=== PATIENT | female | born 1960 | race Caucasian/White ===

== ENCOUNTER 2024-09-24 12:10 | Emergency (ER) | payer MEDICAID ==
[2024-09-24 13:23] LABS: BASOPHILS ABSOLUTE AUTO 0.1 K/mm3 (0.0-0.2); BASOPHILS PERCENT AUTO 0.9 % (0.0-1.0); EOSINOPHILS ABSOLUTE AUTO 0.1 K/mm3 (0.0-0.4); EOSINOPHILS PERCENT AUTO 0.7 % (0.0-6.0); HEMATOCRIT 59.1 % (37.0-47.0); HEMOGLOBIN 19.8 gm/dl (12.0-16.0); IMMATURE GRAN ABSOLUTE AUTO 0.03 K/mm3 (0.00-0.05); IMMATURE GRAN PERCENT AUTO 0.3 % (0.0-0.4); LYMPHOCYTES ABSOLUTE AUTO 2.2 K/mm3 (1.0-4.8); LYMPHOCYTES PERCENT AUTO 21.1 % (24.0-44.0); MEAN CORPUSCULAR HEMOGLOBIN 31.8 pg (28.0-32.0); MEAN CORPUSCULAR HGB CONC 33.5 g/dl (32.0-36.0); MEAN PLATELET VOLUME 9.8 fl (9.4-12.3); MONOCYTES ABSOLUTE AUTO 0.8 K/mm3 (0.0-0.8); MONOCYTES PERCENT AUTO 7.6 % (0.0-8.0); NEUTROPHILS ABSOLUTE AUTO 7.3 K/mm3 (1.8-7.7); NEUTROPHILS PERCENT AUTO 69.4 % (41.0-71.0); PLATELET COUNT,PLT 241 K/mm3 (150-400); RED BLOOD CELL COUNT 6.22 M/mm3 (4.10-5.30); WHITE BLOOD CELL COUNT,WBC 10.56 K/mm3 (3.9-11.3)
[2024-09-24 13:44] LABS: A/G RATIO 0.9 (1-2); ALBUMIN 3.3 g/dl (3.4-5.0); ANION GAP 10.7 (5-15); BILIRUBIN TOTAL 0.5 mg/dL (0.2-1.0); BUN/CREATININE RATIO 12.5 (14-18); CALCIUM 9.5 mg/dL (8.5-10.1); CREATININE 0.8 mg/dL (0.55-1.02); EST CRCL DRUG DOSING (CG) 57.99 mL/min; POTASSIUM,K 3.7 mEq/L (3.5-5.1); PROTEIN TOTAL,TP 6.9 g/dl (6.4-8.2)
[2024-09-24 13:45] LABS: APPEARANCE,URINE CLEAR (Clear); BILIRUBIN,URINE NEGATIVE (Negative); COLOR,URINE YELLOW (Yellow); GLUCOSE,URINE NEGATIVE (Negative); KETONES,URINE NEGATIVE (Negative); LEUKOCYTE ESTERASE,URINE NEGATIVE (Negative); NITRITE,URINE NEGATIVE (Negative); OCCULT BLOOD,URINE NEGATIVE (Negative); PROTEIN,URINE 2+ (Negative); UROBILINOGEN,URINE 0.2 (0.2-1.0)
[2024-09-25 00:41] LABS: BACTERIA,URINE OCCASIONAL /hpf (FEW); EPITHELIAL CELLS,URINE 0-5 /hpf (0-5); RBC,URINE 0-5 /hpf (0-5); WBC,URINE 0-5 /hpf (0-5)
[2024-09-25 00:42] LABS: MUCUS,URINE NOT SEEN /hpf (FEW)
== END 2024-09-24 15:00 | disposition home or self-care (01) ==
LOC: JD.ED 12:10
DX: N39.3 Stress incontinence (female) (male) (principal)
CPT/HCPCS: 36415; 80053; 81001; 85025; 99283

== ENCOUNTER 2024-11-04 12:15 | Emergency (ER) | payer MEDICAID | END 2024-11-04 13:08 | disposition home or self-care (01) | LOC: JD.ED 12:15 | DX: B37.2 Candidiasis of skin and nail (principal); I83.218 Varicose veins of right lower extremity with both ulcer of other part of lower extremity and inflammation; L97.819 Non-pressure chronic ulcer of other part of right lower leg with unspecified severity; E78.00 Pure hypercholesterolemia, unspecified; I10 Essential (primary) hypertension; Z79.899 Other long term (current) drug therapy | CPT/HCPCS: 99283 ==

== ENCOUNTER 2025-02-08 07:33 | Emergency (ER) | payer MEDICAID ==
[2025-02-08 07:49] LABS: BASOPHILS ABSOLUTE AUTO 0.1 K/mm3 (0.0-0.2); BASOPHILS PERCENT AUTO 0.8 % (0.0-1.0); EOSINOPHILS ABSOLUTE AUTO 0.0 K/mm3 (0.0-0.4); EOSINOPHILS PERCENT AUTO 0.3 % (0.0-6.0); IMMATURE GRAN ABSOLUTE AUTO 0.05 K/mm3 (0.00-0.05); IMMATURE GRAN PERCENT AUTO 0.5 % (0.0-0.4); LYMPHOCYTES ABSOLUTE AUTO 1.4 K/mm3 (1.0-4.8); LYMPHOCYTES PERCENT AUTO 13.3 % (24.0-44.0); MEAN PLATELET VOLUME 9.6 fl (9.4-12.3); MONOCYTES ABSOLUTE AUTO 1.0 K/mm3 (0.0-0.8); MONOCYTES PERCENT AUTO 10.2 % (0.0-8.0); NEUTROPHILS ABSOLUTE AUTO 7.6 K/mm3 (1.8-7.7); NEUTROPHILS PERCENT AUTO 74.9 % (41.0-71.0); NRBC ABSOLUTE 0.03 (0.00-0.02); NRBC PERCENT 0.3 % (0.0-0.2); PLATELET COUNT,PLT 213 K/mm3 (150-400); RED BLOOD CELL COUNT 6.93 M/mm3 (4.10-5.30); WHITE BLOOD CELL COUNT,WBC 10.15 K/mm3 (3.9-11.3)
[2025-02-08 07:55] LABS: BASE EXCESS ARTERIAL 14.7 (-2-2.0); BICARBONATE,ARTERIAL 47.9 meq/L (22.0-26.0); O2 SATURATION ARTERIAL 82.8 % (96.0-97.0); PCO2 ARTERIAL 93.0 mmHg (35.0-45.0); PO2 ARTERIAL 52.0 mmHg (80.0-100.0)
[2025-02-08] MEDS: methylPREDNISolone Sodium Succinate 125 MG/2 ML SDV IVPUSH ONE (08:01)
[2025-02-08] MEDS: Sodium Chloride 0.9% 10 ML Syringe FLUSH PRN (08:01)
[2025-02-08 08:16] LABS: A/G RATIO 0.8 (1-2); ALANINE AMINOTRANSFERASE,ALT 17.0 U/L (14-59); ASPARTATE AMNIOTRANSFERASE,AST 13.0 U/L (15-37); BILIRUBIN TOTAL 0.9 mg/dL (0.2-1.0); BLOOD UREA NITROGEN,BUN 8.0 mg/dL (7-18); CHLORIDE,CL 91.0 mEq/L (98-107); CREATININE 0.7 mg/dL (0.55-1.02); EST CRCL DRUG DOSING (CG) 75.01 mL/min; ESTIMATED GFR 96.0 mL/min (>60); GLUCOSE RANDOM 126.0 mg/dL (70-99); LACTIC ACID 0.8 mmol/L (0.4-2.0); POTASSIUM,K 3.3 mEq/L (3.5-5.1); PROTEIN TOTAL,TP 7.3 g/dl (6.4-8.2); SODIUM,NA 134.0 mEq/L (136-145)
[2025-02-08 08:21] LABS: CARBON DIOXIDE,CO2 41.0 mEq/L (21-32); TROPONIN I HIGH SENSITIVITY 291.0 pg/mL (<=51)
[2025-02-08] MEDS: Furosemide 40 MG/4 ML VIAL IVPUSH ONE (10:45)
[2025-02-08 12:22] LABS: PCO2 ARTERIAL 110.0 mmHg (35.0-45.0)
[2025-02-08 12:23] LABS: BASE EXCESS ARTERIAL 11.7 (-2-2.0); BICARBONATE,ARTERIAL 47.1 meq/L (22.0-26.0); O2 SATURATION ARTERIAL 87.7 % (96.0-97.0); PO2 ARTERIAL 58.0 mmHg (80.0-100.0)
[2025-02-08] MEDS: Heparin Sodium 5,000 Units/ML Vial IVPUSH ONE (13:00)
[2025-02-08] MEDS: Heparin Sodium/D5W 250 ML IV SCH (13:01)
== END 2025-02-08 14:00 ==
LOC: JD.ED 07:33
DX: I21.4 Non-ST elevation (NSTEMI) myocardial infarction (principal); R79.89 Other specified abnormal findings of blood chemistry; J18.9 Pneumonia, unspecified organism; I11.0 Hypertensive heart disease with heart failure; I50.9 Heart failure, unspecified; Z79.899 Other long term (current) drug therapy; E78.00 Pure hypercholesterolemia, unspecified
CPT/HCPCS: 36415; 36600; 71045; 80053; 82803; 83605; 83690; 83735; 83880; 84484; 85025; 85379; 87040; 93005; 94640; 94660; 96365; 96367; 96375; 99285; A9270; J1644; J1938; J2543; J2919; J7620